=== PATIENT | male | born 2000 | race Caucasian/White ===

== ENCOUNTER 2021-11-19 11:01 | Emergency (ER) | payer OTHER ==
[2021-11-19] MEDS ORDERED: Ondansetron 4 MG/2 ML SDV IVPUSH ONE ×2 (11:18→13:05)
[2021-11-19] MEDS ORDERED: Sodium Chloride 0.9% 1,000 ML IV SCH ×2 (11:30→12:30)
[2021-11-19] MEDS ORDERED: cefTRIAXone 1 GM in Sodium Chloride 0.9% 50 ML IV ONE (12:26)
[2021-11-19 12:37] LABS: CORONAVIRUS COVID-19 NAA NEGATIVE (NEGATIVE)
== END 2021-11-19 14:28 | disposition home or self-care (01) ==
LOC: JP.ED 11:01
DX: J32.9 Chronic sinusitis, unspecified (principal); T36.4X5A Adverse effect of tetracyclines, initial encounter; E86.0 Dehydration; Z88.0 Allergy status to penicillin; Z20.822 Contact with and (suspected) exposure to COVID-19
CPT/HCPCS: 0241U; 36415; 70450; 70450-26; 81001; 86140; 96365; 96375; 96376; 99284; 99284-25; J0696; J2405; J7030